=== PATIENT | female | born 1975 | race Asian ===

== ENCOUNTER 2016-12-26 12:49 | Emergency (ER) | payer OTHER ==
[~2016-12-26] VITALS: Ht 162.6 cm; Wt 50.0 kg
[~2016-12-26 12:49] MED LIST: IOHEXOL-350 100 ML BOTTLE ONE; SODIUM CHLORIDE 0.9% 10ML VIAL ONE
[2016-12-26] MEDS ORDERED: SODIUM CHLORIDE 0.9% 1,000 ML IV ONE (13:40)
[2016-12-26 14:14] LABS: BASOPHILS % 0.7 % (0.0-2.0); EOSINOPHILS % 2.1 % (0.0-5.0); HEMOGLOBIN. 10.8 g/dL (12.0-16.0); LYMPHOCYTES % 16.5 % (20.0-50.0); MEAN CORPUSCULAR HEMOGLOBIN 24.1 pg (28.0-32.0); MEAN CORPUSCULAR VOLUME 75.8 fL (81.0-99.0); MEAN PLATELET VOLUME 8.9 fl (7.4-10.4); MONOCYTES % 5.9 % (2.0-8.0); NEUTROPHILS % 74.8 % (40.0-76.0); PLATELET 219 x1000/uL (130-400); RED BLOOD CELL COUNT 4.49 mill/uL (4.2-5.4); RED CELL DISTRIBUTION WIDTH 16.3 % (11.6-14.6)
[2016-12-26 14:19] LABS: PARTIAL THROMBOPLASTIN TIME 24.8 sec (24.0-34.0); PROTHROMBIN TIME 10.2 sec
[2016-12-26 14:28] LABS: CARBON DIOXIDE 26 mEq/L (21-32); CHLORIDE 106 mEq/L (98-107); TROPONIN I < 0.02 ng/mL (0.00-0.04)
[2016-12-26 16:44] LABS: UCG SCREEN NEGATIVE
[2016-12-26 16:45] VITALS: BP 112/75
== END 2016-12-26 17:00 | disposition home or self-care (01) ==
LOC: ER 13:09
DX: R55 Syncope and collapse (principal); D64.9 Anemia, unspecified
CPT/HCPCS: 36415; 70450; 71010; 71275; 72125; 80053; 81025; 82962; 83880; 84484; 85025; 85610; 85730; 93005; 96360; 99285; A4216; J7030; Q9967; Z7610